=== PATIENT | female | born 1995 | race Caucasian/White ===

== ENCOUNTER 2022-02-24 16:04 | Emergency (ER) | payer MEDICAID ==
[~2022-02-24] VITALS: Ht 152.4 cm; Wt 62.6 kg
--- NOTE | 2022-02-24 16:42 | ED Abdominal Pain ---
General Chief Complaint: OB < 20 WEEKS Stated Complaint: OB,HEAVY BLEEDING History of Present Illness Date Seen by Provider: Feb 24, 2022 Time Seen by Provider: 16:36 Initial Comments 26-year-old female here with threatened . Patient about 7 weeks and started having some dark red blood yesterday. She is from [facility] and they are out of town. She called her OB and they told her just to monitor it and if it became bright red did go to the ER. Patient states it turned that way today so she presented here. Not having shortness of breath. Is having lower abdominal cramping. Passing blood clots today. No pain or burning with urination Allergies and Home Medications Allergies Coded Allergies: pseudoephedrine (Verified Allergy, Unknown, 02/24/22) Patient Home Medication List Home Medication List Reviewed: Yes Review of Systems Review of Systems Constitutional: see HPI Past Bnwiavc-Eatcty-Inaqem Hx Patient Social History Tobacco Use?: No Physical Exam Vital Signs Vital Signs - First Documented 02/24/22 16:14 Temp 37.2 Pulse 130 Resp 18 B/P (MAP) 134/69 (90) Pulse Ox 96 O2 Delivery Room Air Capillary Refill : Height/Weight/BMI Height: '" Weight: lbs. oz. kg; BMI Method: General Appearance: WD/WN, no apparent distress Respiratory: normal breath sounds Cardiovascular: regular rate, rhythm, no murmur Gastrointestinal: tenderness (suprapubic area. ) Progress/Results/Core Measures Results/Orders Lab Results Laboratory Tests Test 02/24/22 16:28 Range/Units White Blood Count 9.0 4.3-11.0 10^3/uL Red Blood Count 4.78 3.80-5.11 10^6/uL Hemoglobin 14.3 11.5-16.0 g/dL Hematocrit 41 35-52 % Mean Corpuscular Volume 85 80-99 fL Mean Corpuscular Hemoglobin 30 25-34 pg Mean Corpuscular Hemoglobin Concent 35 32-36 g/dL Red Cell Distribution Width 11.7 10.0-14.5 % Platelet Count 306 130-400 10^3/uL Mean Platelet Volume 9.7 9.0-12.2 fL Immature Granulocyte % (Auto) 0 % Neutrophils (%) (Auto) 74 42-75 % Lymphocytes (%) (Auto) 18 12-44 % Monocytes (%) (Auto) 7 0-12 % Eosinophils (%) (Auto) 1 0-10 % Basophils (%) (Auto) 0 0-10 % Neutrophils # (Auto) 6.6 1.8-7.8 10^3/uL Lymphocytes # (Auto) 1.6 1.0-4.0 10^3/uL Monocytes # (Auto) 0.6 0.0-1.0 10^3/uL Eosinophils # (Auto) 0.1 0.0-0.3 10^3/uL Basophils # (Auto) 0.0 0.0-0.1 10^3/uL Immature Granulocyte # (Auto) 0.0 0.0-0.1 10^3/uL Sodium Level 137 135-145 MMOL/L Potassium Level 4.0 3.6-5.0 MMOL/L Chloride Level 103 98-107 MMOL/L Carbon Dioxide Level 21 21-32 MMOL/L Anion Gap 13 5-14 MMOL/L Blood Urea Nitrogen 11 7-18 MG/DL Creatinine 0.69 0.60-1.30 MG/DL Estimat Glomerular Filtration Rate 123 BUN/Creatinine Ratio 16 Glucose Level 92 70-105 MG/DL Calcium Level 9.9 8.5-10.1 MG/DL Corrected Calcium 8.5-10.1 MG/DL Total Bilirubin 0.7 0.1-1.0 MG/DL Aspartate Amino Transf (AST/SGOT) 13 5-34 U/L Alanine Aminotransferase (ALT/SGPT) 10 0-55 U/L Alkaline Phosphatase 92 40-136 U/L Total Protein 7.9 6.4-8.2 GM/DL Albumin 4.7 H 3.2-4.5 GM/DL My Orders Orders - HERI PATEL MD Cbc And Manual Diff (02/24/22 16:44) Comprehensive Metabolic Panel (02/24/22 16:44) Hcg,Quantitative (02/24/22 16:44) Vital Signs/I&O 02/24/22 16:14 Temp 37.2 Pulse 130 Resp 18 B/P (MAP) 134/69 (90) Pulse Ox 96 O2 Delivery Room Air Progress Progress Note : Time: 17:28 Progress Note Labs reviewed. Patient not anemic. CBC and CMP are normal. hCG quantitative showed 2500 went 6 to 8 weeks to be 15,000-200,000. Likely patient having a spontaneous miscarriage. Recommend she follow-up with her OB in [place] for further testing and ultrasound to make sure products of conception are not retained. Departure Impression Primary Impression: Incomplete miscarriage with blood clot Disposition: HOME, SELF-CARE Condition: Stable Departure-Patient Inst. Decision time for Depature: 17:29 Patient Instructions: Miscarriage (DC) Add. Discharge Instructions: Follow-up with OB. Ibuprofen or Tylenol for pain. Watch for signs of infection including fever nausea vomiting pus discharge All discharge instructions reviewed with patient and/or family. Voiced understanding. HERI PATEL MD Feb 24, 2022 16:42
[2022-02-24 16:47] LABS: BASOPHILS % (AUTO) 0 % (0-10); EOSINOPHILS # (AUTO) 0.1 10^3/uL (0.0-0.3); EOSINOPHILS % (AUTO) 1 % (0-10); HEMATOCRIT 41 % (35-52); HEMOGLOBIN 14.3 g/dL (11.5-16.0); LYMPHOCYTES # (AUTO) 1.6 10^3/uL (1.0-4.0); LYMPHOCYTES % (AUTO) 18 % (12-44); MEAN CORPUSCULAR HEMOGLOBIN 30 pg (25-34); MEAN CORPUSCULAR HGB CONC 35 g/dL (32-36); MEAN CORPUSCULAR VOLUME 85 fL (80-99); MEAN PLATELET VOLUME 9.7 fL (9.0-12.2); MONOCYTES # (AUTO) 0.6 10^3/uL (0.0-1.0); MONOCYTES % (AUTO) 7 % (0-12); NEUTROPHILS # (AUTO) 6.6 10^3/uL (1.8-7.8); NEUTROPHILS % (AUTO) 74 % (42-75); PLATELET COUNT 306 10^3/uL (130-400)
[2022-02-24 17:07] LABS: ALANINE AMINOTRANSFERASE 10 U/L (0-55); ALBUMIN 4.7 GM/DL (3.2-4.5); ALKALINE PHOSPHATASE 92 U/L (40-136); BILIRUBIN,TOTAL 0.7 MG/DL (0.1-1.0); BUN/CREATININE RATIO 16; CALCIUM 9.9 MG/DL (8.5-10.1); CARBON DIOXIDE 21 MMOL/L (21-32); CHLORIDE 103 MMOL/L (98-107); CREATININE SERUM 0.69 MG/DL (0.60-1.30); GFR ESTIMATED 123; GLUCOSE 92 MG/DL (70-105); SODIUM 137 MMOL/L (135-145); TOTAL PROTEIN 7.9 GM/DL (6.4-8.2)
[2022-02-24 17:31] VITALS: BP 108/69
[2022-02-24 18:45] LABS: EOSINOPHILS % (MANUAL) 5 %; LYMPHOCYTES % (MANUAL) 12 %; MONOCYTES % (MANUAL) 5 %; NEUTROPHILS % (MANUAL) 78 %
== END 2022-02-24 17:30 | disposition home or self-care (01) ==
LOC: ER FS 16:06
DX: O03.4 Incomplete spontaneous abortion without complication (principal)
CPT/HCPCS: 36415; 80053; 84702; 85007; 85027